=== PATIENT | male | born 1960 | race Caucasian/White ===

== ENCOUNTER 2018-04-15 17:34 | Emergency (ER) | payer MEDICARE, SELFPAY ==
[2018-04-15 17:35] VITALS: BMI 26.6
[2018-04-15 17:43] VITALS: BP 163/72; PULSE 72; TEMP 98.7; O2SAT 96
[2018-04-15] MEDS ORDERED: Tdap Vaccine 0.5 ml Vial (10-64 yrs) IM ONE ×2 (18:10→18:19)
[2018-04-15] MEDS ORDERED: Fluorescein 1 mg Ophthalmic Strip OD ONE (18:54)
--- NOTE | 2018-04-15 18:54 | CT ---
CT orbits without IV contrast Indication: Trauma Comparison: None available Technique: Axial computed tomography images were obtained of the orbits without the use of intravenous contrast. Coronal and sagittal reformatted images were generated and reviewed. This CT exam was performed using 1 or more of the following dose reduction techniques: Automated exposure control, adjustment of the MAA and/or kV according to patient size, and/or use of iterative reconstruction technique. Radiation dose: Total exam DLP = 788.07 mGy-cm. Findings: Streak artifact from dental hardware. The facial bones appear intact without acute displaced fracture identified. The orbits appear unremarkable. The temporomandibular joints are located. The included mastoid air cells appear clear. Mucosal thickening of the ethmoid air cells. Near complete opacification of the right sphenoid sinus including high density internal contents. The frontal sinuses and left sphenoid sinus appear clear. Mucosal thickening bilateral maxillary sinuses. Atherosclerotic calcifications including intracranial vessels and carotid arteries. Impression: No acute fracture identified. Near complete opacification of the right sphenoid sinus including high density internal contents. Increased attenuation of the right sphenoid sinus sinus contents may indicate proteinaceous material or fungal colonization. Mucosal thickening of the ethmoid air cells. Mucosal thickening bilateral maxillary sinuses. Correlate clinically for sinus disease.
--- NOTE | 2018-04-15 19:00 | C.PDOC ---
History Of Present Illness 58 y/o male with history of DM presents to ED with c/o left upper eyelid laceration and swelling sustained when he tripped and fell hitting left eye against the table just prior to arrival. 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 Patient denies loc, headache, pain to the eye, dizziness, nausea, vomiting or any other complaints at this time. Time Seen by Provider: 04/15/18 17:49 Chief Complaint (Nursing): Eye Problem History Per: Patient History/Exam Limitations: no limitations Onset/Duration Of Symptoms: Hrs Current Symptoms Are (Timing): Still Present Past Medical History Reviewed: Historical Data, Nursing Documentation, Vital Signs Vital Signs: Last Vital Signs Temp 98.7 F 04/15/18 17:37 Pulse 72 04/15/18 17:37 Resp 18 04/15/18 17:37 BP 163/72 H 04/15/18 17:37 Pulse Ox 96 04/15/18 17:37 - Medical History PMH: Diabetes, HTN, Hypercholesterolemia, Chronic Kidney Disease Surgical History: No Surg Hx - [facility] Procedures AMPUTATION STUMP COTY (04/07/14) CENTRAL VENOUS CATHETER PLACEMENT WITH GUIDANCE (04/07/14) CL FX REDUC-METATAR/TAR (12/08/13) INJECT ANTIBIOTIC (05/19/14) INJECT/INFUSE ELECTROLYT (04/29/14) OP RED-INT FIX METAT/TAR (12/08/13) COTY JANET DIALYSIS SHUNT (11/25/12) TOE AMPUTATION (04/01/14) VASCULAR CATH IRRIGATION (05/19/14) Family History: States: No Known Family Hx - Social History Hx Tobacco Use: No Hx Alcohol Use: No Hx Substance Use: No - Immunization History Hx Tetanus Toxoid Vaccination: No Hx Influenza Vaccination: Yes (2011) Hx Pneumococcal Vaccination: Yes (2011) Review Of Systems Eyes: Positive for: Pain, Eyelid Inflammation. Negative for: Vision Change, Redness Respiratory: Negative for: Cough, Shortness of Breath Gastrointestinal: Negative for: Nausea, Vomiting Skin: Negative for: Rash Neurological: Negative for: Headache Physical Exam - Physical Exam Appears: Non-toxic, No Acute Distress Skin: Warm, Dry, No Rash Head: Laceration (3cm on left upper eyelid) Eye(s): right: Normal Inspection, PERRL, EOMI, Scleral Icterus, left: Other (fixed irregular iris with haziness (pt notes this is chronic)) Ear(s): Bilateral: Normal Nose: Normal Oral Mucosa: Moist Neck: Normal ROM, Supple Chest: Symmetrical Cardiovascular: Rhythm Regular Respiratory: Normal Breath Sounds, No Rales, No Rhonchi, No Wheezing Extremity: Normal ROM Neurological/Psych: Oriented x3, Normal Speech, Normal Cognition ED Course And Treatment O2 Sat by Pulse Oximetry: 96 (RA) Pulse Ox Interpretation: Normal - CT Scan/US Orbits CT Other Rad Studies (CT/US): Read By Radiologist, Radiology Report Reviewed CT/US Interpretation: Accession No. : [id number]. Patient Name / ID : JARROD Paz / [id number]. Exam Date : 04/15/2018 18:27:07 ( Approved ). Study Comment : Sex / Age : M / 58Y. Creator : Paulette Moreland MD. Dictator : Paulette Moreland MD. Sewer Separation Designer : Bus Driver : Paulette Moreland MD. Approver2 : Report Date : 04/15/2018 18:48:18. My Comment : . CT orbits without IV contrast. Indication: Trauma. Comparison: None available. Technique: Axial computed tomography images were obtained of the orbits without the use of intravenous contrast. Coronal and sagittal reformatted images were generated and reviewed. This CT exam was performed using 1 or more of the following dose reduction techniques: Automated exposure control, adjustment of the MAA and/or kV according to patient size, and/or use of iterative reconstruction technique. Radiation dose: Total exam DLP = 788.07 mGy-cm. Findings: Streak artifact from dental hardware. The facial bones appear intact without acute displaced fracture identified. The orbits appear unremarkable. The temporomandibular joints are located. The included mastoid air cells appear clear. Mucosal thickening of the ethmoid air cells. Near complete opacification of the right sphenoid sinus including high density internal contents. The frontal sinuses and left sphenoid sinus appear clear. Mucosal thickening bilateral maxillary sinuses. Atherosclerotic calcifications including intracranial vessels and carotid arteries. Impression: No acute fracture identified. Near complete opacification of the right sphenoid sinus including high density internal contents. Increased attenuation of the right sphenoid sinus sinus contents may indicate proteinaceous material or fungal colonization. Mucosal thickening of the ethmoid air cells. Mucosal thickening bilateral maxillary sinuses. Correlate clinically for sinus disease. Progress Note: Florescene stain had no intake. Pt was given results of the CT, city manager used to ensure understanding. Instructed to follow up with PMD/ENT in 1-2 days. Also instructed to follow up to opthalmologist in 1-2 days. Discussed wound care and wound check in [address] Case discussed with Dr Horton, agreed upon plan and dischage. Laceration - Laceration Repair left eye lid Wound Length (In cm): 3 Description Of Wound: Linear Wound Cleansed With: Sterile Saline Wound Examination: Irrigated With Saline, No FB With Wound Exploration, No Tendon Injury With Wound Exploration Wound Closure: Skin Glue Wound Complexity: Simple Disposition - Disposition Referrals: Atif Granados [Staff Provider] - Disposition: HOME/ ROUTINE Disposition Time: 18:57 Condition: STABLE Additional Instructions: Vaya a ghosh oculista o clnica en 2-3 palacio sin falta, para gunnar evaluacin adicional. Observe si hay signos de infeccin, pradeep enrojecimiento, inflamacin o secrecin. Regrese a la logan de emergencias en cualquier momento si los sntomas persisten o empeoran. Instructions: Laceration Repair With Glue (DC) Forms: raksul (Divehi) Print Language: TURKISH - Clinical Impression Clinical Impression: Left eyelid laceration - PA / LABOR CONTRACT ANALYST / Resident Statement MD/DO has reviewed & agrees with the documentation as recorded. - Scribe Statement The provider has reviewed the documentation as recorded by the Scribtray Coe All medical record entries made by the Scribe were at my direction and personally dictated by me. I have reviewed the chart and agree that the record accurately reflects my personal performance of the history, physical exam, medical decision making, and the department course for this patient. I have also personally directed, reviewed, and agree with the discharge instructions and disposition.
[2018-04-15] MEDS ORDERED: PROPARACAINE/FLUORESCEIN SOD 100 DROP/5 ML BOTTLE ONE (19:04)
[2018-04-15 19:12] VITALS: RESP 20
== END 2018-04-15 19:12 | disposition home or self-care (01) ==
LOC: C.ER 17:34
DX: S01.112A Laceration without foreign body of left eyelid and periocular area, initial encounter (principal); W01.198A Fall on same level from slipping, tripping and stumbling with subsequent striking against other object, initial encounter

== ENCOUNTER 2018-06-27 09:09 | Emergency (ER) | payer MEDICARE ==
[2018-06-27 09:10] VITALS: BMI 26.6
[2018-06-27 09:18] VITALS: RESP 18
[2018-06-27 10:10] VITALS: BP 123/69; PULSE 69; TEMP 98.3
[2018-06-27 10:11] VITALS: O2SAT 99
--- NOTE | 2018-06-27 10:11 | C.PDOC ---
History Of Present Illness 58 year old male, whose past medical history includes Diabetes, presents to the ED for evaluation of right foot pain which began 3 days ago. Patient reports a sharp feeling and tingling sensation to his toes. He is ambulatory and denies fever, chills, trauma/injury, sensory changes, swelling or weakness. Time Seen by Provider: 06/27/18 09:27 Chief Complaint (Nursing): Lower Extremity Problem/Injury History Per: Patient History/Exam Limitations: no limitations Onset/Duration Of Symptoms: Days (3) Current Symptoms Are (Timing): Still Present Additional History Per: Patient - Ankle/Foot Description Of Injury: denies: Fell, Struck With Object, Struck Against Object, Twisted Past Medical History Reviewed: Historical Data, Nursing Documentation, Vital Signs Vital Signs: Last Vital Signs Temp 97.7 F 06/27/18 09:14 Pulse 74 06/27/18 09:14 Resp 18 06/27/18 09:14 BP 163/84 H 06/27/18 09:14 Pulse Ox 99 06/27/18 09:14 - Medical History PMH: Diabetes, HTN, Hypercholesterolemia, Chronic Kidney Disease Surgical History: No Surg Hx - [facility] Procedures AMPUTATION STUMP COTY (04/07/14) CENTRAL VENOUS CATHETER PLACEMENT WITH GUIDANCE (04/07/14) CL FX REDUC-METATAR/TAR (12/08/13) INJECT ANTIBIOTIC (05/19/14) INJECT/INFUSE ELECTROLYT (04/29/14) OP RED-INT FIX METAT/TAR (12/08/13) COTY JANET DIALYSIS SHUNT (11/25/12) TOE AMPUTATION (04/01/14) VASCULAR CATH IRRIGATION (05/19/14) Family History: States: Unknown Family Hx - Social History Hx Tobacco Use: No Hx Alcohol Use: No Hx Substance Use: No - Immunization History Hx Tetanus Toxoid Vaccination: No Hx Influenza Vaccination: Yes (2011) Hx Pneumococcal Vaccination: Yes (2011) Review Of Systems Constitutional: Negative for: Fever, Chills Musculoskeletal: Positive for: Foot Pain (right) Neurological: Negative for: Weakness, Numbness Physical Exam - Physical Exam Appears: Non-toxic, No Acute Distress Skin: Normal Color, Warm, Dry, No Ecchymosis, No Other (erythema or skin changes to right foot ) Head: Atraumatic, Normacephalic Eye(s): bilateral: Normal Inspection Oral Mucosa: Moist Neck: Supple Chest: Symmetrical, No Deformity, No Tenderness Cardiovascular: Rhythm Regular, No Murmur Respiratory: Normal Breath Sounds, No Rales, No Rhonchi, No Wheezing Extremity: Normal ROM, No Tenderness, No Calf Tenderness, Capillary Refill (less than 2 seconds ), No Swelling, Other (right foot: 1st toe is amputated ) Pulses: Left Dorsalis Pedis: Normal, Right Dorsalis Pedis: Normal Neurological/Psych: Oriented x3, Normal Speech, Normal Cognition, Normal Sensation Gait: Steady ED Course And Treatment O2 Sat by Pulse Oximetry: 99 (on RA) Pulse Ox Interpretation: Normal - Other Rad Right foot XR X-Ray: Viewed By Me, Read By Radiologist Interpretation: Date of service: 06/27/2018. PROCEDURE: Right Foot Radiographs. HISTORY: pain to foot, h.o DM. COMPARISON: None. FINDINGS: BONES: Status post amputation of the great toe and partial amputation of the 1st metatarsal. There is deformity in the distal 1st metatarsal. No acute displaced fracture or bone destruction. Bone alignment is normal. There is a small plantar calcaneal spur and dorsal calcaneal enthesophyte. JOINTS: Normal. SOFT TISSUES: An os ossific density lateral to the cuboid may represent an accessory ossifications center or soft tissue ossification. OTHER FINDINGS: There are advanced atherosclerotic vascular calcifications. IMPRESSION: No acute fracture or bone destruction. If there is a concern for osteomyelitis, an MRI is a more sensitive modality. Medical Decision Making Medical Decision Making: Impression: 58 year old male with atraumatic right foot pain for 3 days Plan: * Tramadol PO * Right foot XRay Progress: Patient with right foot atraumatic for few days. There is no signs of cellulitis, gout, or fracture. Right foot Xray done. Results show no fracture or free gas. On reassessment, patient is resting comfortably, showing no signs of distress and is stable for discharge. Patient is advised to follow up with his PMD within 1-2 days for further evaluation and understands to return to the ED if symptoms persist or worsen. Disposition Counseled Patient/Family Regarding: Diagnosis, Need For Followup - Disposition Referrals: Mojgan Rojas DPM [Staff Provider] - [facility] [Outside] Disposition: HOME/ ROUTINE Disposition Time: 10:08 Condition: STABLE Additional Instructions: [place] Tylenol o Motrin para el dolor segn sea necesario Alex tramadol cuando el dolor es intenso. Shmuel un seguimiento en la clnica para luis Podiatry DR Rojas o bruno a ghosh oficina Prescriptions: Ibuprofen [Motrin] 600 mg PO Q8 #30 tab traMADol [Ultram] 50 mg PO Q8 PRN #15 tab PRN Reason: Pain, Severe (8-10) Instructions: Diabetic Neuropathy (DC) Print Language: LITHUANIAN - POA Present On Arrival: None - Clinical Impression Clinical Impression: Neuropathy, diabetic, Foot pain - PA / BUDGET ENGINEER / Resident Statement MD/DO has reviewed & agrees with the documentation as recorded. - Scribe Statement The provider has reviewed the documentation as recorded by the Scribe (Leila Pereira) All medical record entries made by the Scribe were at my direction and personally dictated by me. I have reviewed the chart and agree that the record accurately reflects my personal performance of the history, physical exam, medical decision making, and the department course for this patient. I have also personally directed, reviewed, and agree with the discharge instructions and disposition.
--- NOTE | 2018-06-27 11:45 | RAD ---
Date of service: 06/27/2018 PROCEDURE: Right Foot Radiographs. HISTORY: pain to foot, h.o DM COMPARISON: None. FINDINGS: BONES: Status post amputation of the great toe and partial amputation of the 1st metatarsal. There is deformity in the distal 1st metatarsal. No acute displaced fracture or bone destruction. Bone alignment is normal. There is a small plantar calcaneal spur and dorsal calcaneal enthesophyte. JOINTS: Normal. SOFT TISSUES: An os ossific density lateral to the cuboid may represent an accessory ossifications center or soft tissue ossification. OTHER FINDINGS: There are advanced atherosclerotic vascular calcifications. IMPRESSION: No acute fracture or bone destruction. If there is a concern for osteomyelitis, an MRI is a more sensitive modality.
== END 2018-06-27 10:43 | disposition home or self-care (01) ==
LOC: C.ER 09:09
DX: E11.40 Type 2 diabetes mellitus with diabetic neuropathy, unspecified (principal); M79.671 Pain in right foot